=== PATIENT | male | born 1975 | race Hispanic/Latino ===

== ENCOUNTER 2024-08-24 17:47 | Inpatient (IN) | payer OTHER ==
[~2024-08-24] VITALS: Ht 188 cm; Wt 108.9 kg
[2024-08-24 18:35] VITALS: PULSE 90; RESP 18; TEMP 98.4
[2024-08-24 19:11] LABS: BASOPHILS % 0.3 % (0.0-1.0); EOSINOPHILS # (AUTO) 0.2 (0.0-0.4); EOSINOPHILS % 2.5 % (0.0-6.0); HEMATOCRIT 43.2 % (38.2-49.6); HEMOGLOBIN 14.6 g/dL (14.0-18.0); LYMPHOCYTES # (AUTO) 1.3 (1.0-3.2); LYMPHOCYTES % 13.3 % (18.0-39.1); MEAN CORPUSCULAR HEMOGLOBIN 30.5 pg (28-32); MEAN CORPUSCULAR HGB CONC 33.8 g/dL (31-35); MEAN CORPUSCULAR VOLUME 90.4 fL (81-99); MONOCYTES # (AUTO) 0.8 (0.2-0.8); MONOCYTES % 8.7 % (4.4-11.3); NEUTROPHILS # (AUTO) 7.3 (2.1-6.9); NEUTROPHILS % 74.9 % (38.7-80.0); PLATELET COUNT 144 x10e3/uL (140-360); RED BLOOD COUNT 4.78 x10e6/uL (4.3-5.7); WHITE BLOOD COUNT 9.69 x10e3/uL (4.8-10.8)
[2024-08-24 19:29] VITALS: PULSE 89; RESP 18; O2SAT 99
[2024-08-24 19:36] LABS: ALBUMIN 4.3 g/dL (3.5-5.0); ALBUMIN/GLOBULIN RATIO 1.2 (0.8-2.0); CALCIUM 9.5 mg/dL (8.4-10.2); CREATININE, SERUM 1.01 mg/dL (0.72-1.25); TOTAL PROTEIN 7.8 g/dL (6.5-8.1)
[2024-08-24] MEDS ORDERED: ONDANSETRON HCL INJ 2MG/ML 2ML 2 MG/ML VIAL IV PRN (20:15)
[2024-08-24] MEDS ORDERED: DEXTROSE 50% SYRINGE 50 ML IV PRN (20:15)
[2024-08-24] MEDS: Vancomycin IV 1 GM in SODIUM CHLORIDE 0.9% 250ML 250 ML IV SCH (21:40)
[2024-08-24] MEDS: SODIUM CHLORIDE 0.9% 1000ML 1,000 ML IV SCH (21:41)
[2024-08-24] MEDS ORDERED: ACETAMINOPHEN 325 MG TAB PO PRN (22:15)
[2024-08-24 22:51] VITALS: BP 159/87; PULSE 98; RESP 18; TEMP 98.7; O2SAT 99
[2024-08-24 23:00] VITALS: BP 159/87; PULSE 98; RESP 18; TEMP 98.7; O2SAT 99
[2024-08-24 23:07] VITALS: BP 159/87; PULSE 98; RESP 18; TEMP 98.7; O2SAT 99
[2024-08-24] MEDS: Morphine 4mg INJECTION 4 MG/ML INJ IV PRN (23:27)
[2024-08-25] VITALS (8 sets, daily range): BP systolic 119–140; BP diastolic 70–83; PULSE 62–98; RESP 17–20; TEMP 98.2–98.5; O2SAT 96–99
[2024-08-25 05:12] LABS: BASOPHILS % 0.3 % (0.0-1.0); EOSINOPHILS # (AUTO) 0.2 (0.0-0.4); EOSINOPHILS % 1.5 % (0.0-6.0); HEMATOCRIT 37.6 % (38.2-49.6); HEMOGLOBIN 12.9 g/dL (14.0-18.0); LYMPHOCYTES # (AUTO) 1.2 (1.0-3.2); LYMPHOCYTES % 11.7 % (18.0-39.1); MEAN CORPUSCULAR HEMOGLOBIN 31.2 pg (28-32); MEAN CORPUSCULAR HGB CONC 34.3 g/dL (31-35); MEAN CORPUSCULAR VOLUME 90.8 fL (81-99); MONOCYTES # (AUTO) 0.9 (0.2-0.8); NEUTROPHILS # (AUTO) 7.9 (2.1-6.9); NEUTROPHILS % 77.2 % (38.7-80.0); PLATELET COUNT 150 x10e3/uL (140-360); RED BLOOD COUNT 4.14 x10e6/uL (4.3-5.7); WHITE BLOOD COUNT 10.17 x10e3/uL (4.8-10.8)
[2024-08-25 05:49] LABS: ALBUMIN 3.7 g/dL (3.5-5.0); ALBUMIN/GLOBULIN RATIO 1.2 (0.8-2.0); ANION GAP 14.8 mmol/L (8-16); BILIRUBIN,TOTAL 0.8 mg/dL (0.2-1.2); CALCIUM 8.7 mg/dL (8.4-10.2); CREATININE, SERUM 0.92 mg/dL (0.72-1.25); POTASSIUM 3.8 mmol/L (3.5-5.1); TOTAL PROTEIN 6.8 g/dL (6.5-8.1)
[2024-08-25] MEDS ORDERED: POTASSIUM CHLORIDE 20 MEQ TAB CR PO PRN (08:30)
[2024-08-25] MEDS ORDERED: SIMETHICONE 80 MG CHEW PO PRN (08:30)
[2024-08-25] MEDS ORDERED: MELATONIN 5 MG TABLET PO PRN (08:30)
[2024-08-25] MEDS ORDERED: HYDRALAZINE HCL 20 MG/ML VIAL IV PRN (08:30)
[2024-08-25] MEDS ORDERED: ALBUTEROL/IPRATROPIUM 3 ML NEB NEB PRN (08:30)
[2024-08-25] MEDS ORDERED: BENZONATATE 100 MG CAP PO PRN (08:30)
[2024-08-25] MEDS ORDERED: LIDOCAINE 4% PATCH TP PRN (08:30)
[2024-08-25] MEDS ORDERED: DOCUSATE SODIUM 100 MG CAP PO PRN (08:30)
[2024-08-25] MEDS ORDERED: DEXTROSE 50% SYRINGE 50 ML IV PRN (08:30)
[2024-08-25] MEDS ORDERED: DIPHENHYDRAMINE HCL 25 MG CAP PO PRN (08:30)
[2024-08-25] MEDS: KETOROLAC TROMETHAMINE 30 MG/ML VIAL IV SCH (17:03)
[2024-08-26 04:01] VITALS: BP 121/56; PULSE 66; RESP 19; TEMP 97.5; O2SAT 99
[2024-08-26] MEDS ORDERED: PROPOFOL IV EMULSION 10 MG/ML 20 ML VIAL ONE (06:43)
[2024-08-26] MEDS ORDERED: FENTANYL CITRATE/PF 100MCG/2 ML INJ ONE (06:43)
[2024-08-26] MEDS ORDERED: LIDOCAINE HCL 2% LOCAL INJ 5 ML SDV VIAL INJ ONE (06:43)
[2024-08-26] MEDS ORDERED: MIDAZOLAM HCL 2 MG/2 ML VIAL ONE (06:43)
[2024-08-26] MEDS ORDERED: DEXAMETHASONE SOD PHOS INJ 4 MG/ML SDV ONE (06:59)
[2024-08-26] MEDS ORDERED: ONDANSETRON HCL INJ 2MG/ML 2ML 2 MG/ML VIAL ONE (06:59)
[2024-08-26 08:15] VITALS: BP 119/54; PULSE 73; RESP 20; TEMP 97; O2SAT 96
[2024-08-26 08:17] VITALS: BP 119/54; PULSE 73; RESP 20; TEMP 97; O2SAT 96
[2024-08-26 08:27] LABS: BASOPHILS % 0.7 % (0.0-1.0); EOSINOPHILS # (AUTO) 0.4 (0.0-0.4); EOSINOPHILS % 8.4 % (0.0-6.0); HEMOGLOBIN 12.6 g/dL (14.0-18.0); LYMPHOCYTES % 22.1 % (18.0-39.1); MEAN CORPUSCULAR HEMOGLOBIN 30.9 pg (28-32); MEAN CORPUSCULAR HGB CONC 34.1 g/dL (31-35); MEAN CORPUSCULAR VOLUME 90.7 fL (81-99); MONOCYTES # (AUTO) 0.6 (0.2-0.8); MONOCYTES % 12.4 % (4.4-11.3); NEUTROPHILS # (AUTO) 2.5 (2.1-6.9); NEUTROPHILS % 56.2 % (38.7-80.0); PLATELET COUNT 133 x10e3/uL (140-360); RED BLOOD COUNT 4.08 x10e6/uL (4.3-5.7); RED CELL DISTRIBUTION WIDTH 12.9 % (11.7-14.4); WHITE BLOOD COUNT 4.43 x10e3/uL (4.8-10.8)
[2024-08-26] MEDS ORDERED: SEVOFLURANE INHAL SOLN 250 ML PEN BTL ONE (08:29)
[2024-08-26 08:45] LABS: ANION GAP 12.5 mmol/L (8-16); CALCIUM 8.5 mg/dL (8.4-10.2); CREATININE, SERUM 0.9 mg/dL (0.72-1.25); POTASSIUM 4.5 mmol/L (3.5-5.1)
[2024-08-26] MEDS: PANTOPRAZOLE SOD 40 MG TABEC PO SCH (08:45)
[2024-08-26 17:21] VITALS: BP 135/84; PULSE 94; RESP 18; TEMP 98.4; O2SAT 97
[2024-08-26 20:00] VITALS: BP_SYST 135; BP_SYST 158; BP_DIAS 73; BP_DIAS 84; PULSE 87; PULSE 94; RESP 18; RESP 19; TEMP 98.1; TEMP 98.4; O2SAT 96; O2SAT 97
[2024-08-27] VITALS (8 sets, daily range): BP systolic 127–144; BP diastolic 70–82; PULSE 64–78; RESP 17–20; TEMP 97.4–98.1; O2SAT 96–100
[2024-08-27 07:16] LABS: BASOPHILS % 0.2 % (0.0-1.0); EOSINOPHILS # (AUTO) 0.1 (0.0-0.4); EOSINOPHILS % 0.6 % (0.0-6.0); HEMATOCRIT 38.3 % (38.2-49.6); HEMOGLOBIN 13.1 g/dL (14.0-18.0); LYMPHOCYTES # (AUTO) 1.2 (1.0-3.2); MEAN CORPUSCULAR HGB CONC 34.2 g/dL (31-35); MEAN CORPUSCULAR VOLUME 90.5 fL (81-99); MONOCYTES # (AUTO) 0.8 (0.2-0.8); MONOCYTES % 7.1 % (4.4-11.3); NEUTROPHILS # (AUTO) 9.1 (2.1-6.9); NEUTROPHILS % 80.7 % (38.7-80.0); PLATELET COUNT 162 x10e3/uL (140-360); RED BLOOD COUNT 4.23 x10e6/uL (4.3-5.7); RED CELL DISTRIBUTION WIDTH 12.6 % (11.7-14.4); WHITE BLOOD COUNT 11.23 x10e3/uL (4.8-10.8)
[2024-08-27 07:34] LABS: CALCIUM 9.1 mg/dL (8.4-10.2); CREATININE, SERUM 0.87 mg/dL (0.72-1.25)
[2024-08-27] MEDS: VANCOMYCIN 1.5 GM/300 ML (PEG) 300 ML IV SCH (21:09)
[2024-08-28 03:32] VITALS: BP 127/77; PULSE 62; RESP 18; TEMP 97.6; O2SAT 99
[2024-08-28 08:00] VITALS: BP 126/83; PULSE 68; RESP 19; TEMP 98.2; O2SAT 97
[2024-08-28 11:00] VITALS: BP 118/82; PULSE 73; RESP 19; TEMP 98.2; O2SAT 98
[2024-08-28] MEDS ORDERED: CEPHALEXIN500 MG PO (12:46)
[2024-08-28] MEDS: HYDROCODONE/APAP 5MG-325MG TAB PO PRN (13:40)
== END 2024-08-28 14:50 | disposition home or self-care (01) | DRG 603 ==
LOC: ER 19:01 → ERHOLD 20:13 → MED/SURG 22:41
PROVIDERS: ADMIT Internal Medicine; ATTEND Internal Medicine
PROC: 0J9J0ZZ Drainage of Right Hand Subcutaneous Tissue and Fascia, Open Approach (ICD-10-PCS; principal; 2024-08-26 07:00)
DX: L03.021 Acute lymphangitis of right finger (principal); L02.511 Cutaneous abscess of right hand; L03.123 Acute lymphangitis of right upper limb; B95.61 Methicillin susceptible Staphylococcus aureus infection as the cause of diseases classified elsewhere; S61.212A Laceration without foreign body of right middle finger without damage to nail, initial encounter; W45.8XXA Other foreign body or object entering through skin, initial encounter; Y92.89 Other specified places as the place of occurrence of the external cause; Y99.0 Civilian activity done for income or pay; Z71.81 Spiritual or religious counseling
CPT/HCPCS: 36415; 80048; 80053; 80202; 82948; 85025; 87040; 87071; 87075; 87186; 87205; 94799; 99284; J1100; J1885; J2003; J2250; J2270; J2405; J2543; J7030; J7050